=== PATIENT | female | born 1940 | race Caucasian/White ===

== ENCOUNTER → 2023-11-07 12:52 | Outpatient (REF) | payer MEDICARE, OTHER, SELFPAY | LOC: HWWDC 12:52 | PROVIDERS: ATTENDING PHYSICIAN Family Medicine | DX: Z12.31 Encounter for screening mammogram for malignant neoplasm of breast (principal) | CPT/HCPCS: 77063; 77067 ==

== ENCOUNTER → 2023-11-30 10:24 | Outpatient (REF) | payer MEDICARE, OTHER, SELFPAY ==
[2023-11-30 12:33] LABS: % Basophils 1.2 % (0-2); % Eosinophils 2.1 % (0-6); % Immature Granulocytes 0.3 % (0-0.5); % Lymphocytes 26.3 % (20.5-51.1); % Monocytes 7.9 % (1.7-9.3); % Neutrophils 62.2 % (42.2-75.2); Absolute Basophils 0.1 10^3/uL (0-0.2); Absolute Eosinophils 0.1 10^3/uL (0-0.7); Absolute Lymphocytes 1.5 10^3/uL (1.2-3.4); Absolute Monocytes 0.5 10^3/uL (0.1-0.6); Absolute Neutrophils 3.6 10^3/uL (1.4-6.5); Hematocrit 39.4 % (37.0-47.0); Hemoglobin 13.4 g/dL (12.0-16.0); Mean Corpuscular Hgb 30.8 pg (27.0-31.0); Mean Corpuscular Volume 90.6 fL (81.0-99.0); Mean Platelet Volume 10.9 fL (7.4-10.4); Nucleated Red Blood Cells % 0 %; Platelet Count 248 10^3/uL (130-400); Red Blood Cell Count 4.35 10^6/uL (4.20-5.40); Red Cell Dist. Width 13.5 % (11.5-14.5); White Blood Cell Count 5.8 10^3/uL (4.8-10.8)
[2023-11-30 12:55] LABS: ALT (SGPT) 16 U/L (0-35); AST (SGOT) 29 U/L (14-36); Albumin 4.4 g/dl (3.5-5.0); Alkaline Phosphatase 52 U/L (38-126); Blood Urea Nitrogen 14 mg/dl (7-17); Calcium 9.9 mg/dl (8.4-10.2); Carbon Dioxide 28 mmol/L (22-30); Chloride 104 mmol/L (98-107); Glucose 93 mg/dl (70-99); HDL Cholesterol 69 mg/dl; LDL Cholesterol, Calculated 185 mg/dl; Potassium 4.8 mmol/L (3.5-5.1); Sodium 142 mmol/L (135-145); Total Bilirubin 0.6 mg/dl (0.2-1.3); Total Cholesterol 272 mg/dl (50-199); Total Protein 6.6 g/dl (6.3-8.2); Triglyceride 92 mg/dl (10-149); Very Low Density Lipoprotein 18 mg/dl (0-30); eGFR > 60.00
[2023-11-30 13:20] LABS: TSH Reflex To Free T4 1.48 uIU/ml (0.47-4.68)
== END ==
LOC: HWLAB 10:24
PROVIDERS: ATTENDING PHYSICIAN Family Medicine
DX: E78.00 Pure hypercholesterolemia, unspecified (principal); Z13.1 Encounter for screening for diabetes mellitus; Z13.29 Encounter for screening for other suspected endocrine disorder; R53.83 Other fatigue
CPT/HCPCS: 36415; 80053; 80061; 84443; 85025

== ENCOUNTER 2024-05-02 21:50 | Emergency (ER) | payer MEDICARE, OTHER, SELFPAY ==
[2024-05-02 21:54] VITALS: BP 160/88
--- NOTE | 2024-05-02 22:22 | ED.GENMED ---
History of Present Illness
<Linda Villavicencio PA-C - Last Filed: 05/03/24 00:17>
General
Chief Complaint: Skin Surface Trauma
Source: patient
Exam Limitations: none
Time Seen by Provider: 05/02/24 22:16
Nursing documentation reviewed up to this point in time: agreed with
History of Present Illness
History of Present Illness:
Patient is an 83-year-old female presenting to the emergency department with laceration to right pointer finger. Patient states she was cutting cucumbers on a mandolin around 5 PM when she sliced her right index finger. She tried to get bleeding
to stop with direct pressure although it continues to ooze. Patient came to the emergency department for evaluation. Patient denies any numbness/tingling in right finger. No other injury sustained. Patient not on any blood thinners. Last
tetanus shot unknown.
Past History
<Linda Villavicencio PA-C - Last Filed: 05/03/24 00:17>
Past History
ED Past Medical History: None
ED Past Surgical History: None
Review of Systems
<Linda Villavicencio PA-C - Last Filed: 05/03/24 00:17>
Review of Systems
Allergies reviewed?: Yes
All Other Systems: ROS reviewed and negative except as documented in HPI and ROS
Phy Exam
<Linda Villavicencio PA-C - Last Filed: 05/03/24 00:17>
Physical Exam
Physical Exam:
Vitals: Patient's vital signs are stable. Afebrile
General: Patient is well appearing, no acute distress
Skin: Warm and dry, no rashes or lesions
Head: Normocephalic, atraumatic
Throat: Protecting airway
Neck: Normal ROM, no cervical spine tenderness
Cardiac: Regular rate
Pulm: No apparent respiratory distress
Abdomen: Nondistended
Extremities: Superficial avulsion to tip of right index finger at lateral aspect. Slow ooze of blood, no pulsatile bleeding. Full range of motion in right index finger at PE, PIP, DIP joints against resistance. No tendon involvement. Sensation
intact. Cap refill within normal limits
Neuro: Grossly intact
Psychiatric: Normal affect.
Course
<Linda Villavicencio PA-C - Last Filed: 05/03/24 00:17>
Orders/Labs/Results
Orders:
Orders
05/02/24 22:23
Tetanus/Diphth/Acelpertussis [Adacel] 0.5 ml IM .ONCE ONE
Vital Signs
Initial and Last Documented VS:
Initial Vital Signs
Temp Pulse Resp BP Pulse Ox
98.1 F 83 16 160/88 98
05/02/24 21:54 05/02/24 21:54 05/02/24 21:54 05/02/24 21:54 05/02/24 21:54
Last Documented Vital Signs
Temp Pulse Resp BP Pulse Ox
98.1 F 71 16 154/74 99
05/02/24 21:54 05/02/24 23:02 05/02/24 23:02 05/02/24 23:02 05/02/24 23:02
<Rinku Nuñez DO - Last Filed: 05/02/24 22:52>
Orders/Labs/Results
Orders:
Orders
05/02/24 22:23
Tetanus/Diphth/Acelpertussis [Adacel] 0.5 ml IM .ONCE ONE
Vital Signs
Initial and Last Documented VS:
Initial Vital Signs
Temp Pulse Resp BP Pulse Ox
98.1 F 83 16 160/88 98
05/02/24 21:54 05/02/24 21:54 05/02/24 21:54 05/02/24 21:54 05/02/24 21:54
Last Documented Vital Signs
Temp Pulse Resp BP Pulse Ox
98.1 F 71 16 154/74 99
05/02/24 21:54 05/02/24 23:02 05/02/24 23:02 05/02/24 23:02 05/02/24 23:02
<Linda Villavicencio PA-C - Last Filed: 05/03/24 00:17>
MDM/Problems Addressed
Differential Diagnosis Includes:
Not limited to: Skin avulsion, laceration, etc.
MDM/Problems Addressed:
83-year-old female presenting with superficial avulsion injury to right index finger occurring a few hours prior to arrival. No numbness/tingling of right index finger. No other injury sustained. Unknown last tetanus shot. No anticoagulation.
Hypertensive, otherwise patient has stable vital signs. Physical exam as above. There is a relatively small superficial avulsion to lateral side of tip of right index finger with slow ooze of blood. No pulsatile bleeding. No tendon involvement.
Right index finger neurovascularly intact. Suture repair not necessary. Tdap updated. Wound thoroughly irrigated with normal saline. Will place Surgifoam, compression bandage and reassess.
Update: Surgery from/bandage placed approximate 10 minutes ago. Patient reassessed at bedside without any evidence of rebleeding. Feel patient stable for discharge home with wound care instructions. Advised to monitor closely for signs of
infection. All questions answered. Patient will follow with PCP as needed. Patient seen with attending physician.
Chronic conditions affecting care:
N/A
Acute Exacerbation and/or Progression of Chronic Illness:
N/A
<Linda Villavicencio PA-C - Last Filed: 05/03/24 00:17>
*Pulse Oximetry
Patient hypoxic: no
*EKG
Interpreted by ED Provider?: NA
*Grid Operator Interpretation
Rate: Grid Operator- N/A
*Critical Care Note
Total Time (30-74mins, 75-104mins- exclusive of procedures): Not Applicable
ED Attending Note
<Linda Villavicencio PA-C - Last Filed: 05/03/24 00:17>
-
Portions of this chart may have been created with voice recognition software.� Occasional wrong word or��sound alike� substitutions may have occurred due to the inherent limitations of voice recognition software.
<Rinku Nuñez DO - Last Filed: 05/02/24 22:52>
ED Attending Note
Patient seen and examined by attending physician: Yes
ED Attending Note:
Pleasant 83-year-old female with a superficial avulsion to her right index finger from a mandolin. Tetanus shot status unknown. No other injuries. No anticoagulation. Patient was seen in conjunction with the [facility]. I have reviewed and agree with
her history and treatment plan. Independent physical exam there is a 0.5 cm diameter avulsion to the lateral tip of her right index finger. Plan is Surgifoam and bandage. No suture repair necessary suture repair necessary.
Discharge Plan
Departure
Patient Disposition: Home (Routine Discharge)
Date of Disposition: 05/02/24
Time of Disposition: 22:48
Patient with high blood pressure during this ER visit?: Yes
Covid-19: Not Applicable
Discharge Problem:
Avulsion injury of right index finger
Instructions: Wound care - ED discharge instructions
Prescriptions:
No Action
No Current Medications
Referrals:
Andrew Mcclure Jr., DO [Family Provider] -
Activity Restrictions/Additional Instructions:
RETURN TO THE EMERGENCY DEPARTMENT WITH ANY BLEEDING THAT WILL NOT STOP AT HOME OR ANY SIGNS OF INFECTION INCLUDING FEVERS, CHILLS, SIGNIFICANT REDNESS/SWELLING AROUND WOUND, OR PURULENT DRAINAGE, RED STREAKING AWAY FROM WOUND, OR ANY OTHER CONCERNS
-Use your current bandage on for the next 24 to 48 hours. Then remove and wash wound gently with soap and water daily. Keep covered until skin heals. Monitor closely for signs of infection.
-Follow-up with primary care as needed for further evaluation/treatment
Monitor your symptoms closely and return to the emergency department with any acute worsening/new symptoms or any other concerns
Interventions
Interventions:
*Risk Screen - Suicide Last Done: 05/02/24 22:17
*General Assessment Last Done: 05/02/24 21:54
*Neglect/Abuse Screening Last Done: 05/02/24 21:54
ED- Fall Risk Assessment Last Done: 05/02/24 22:17
*ED COVID-19 Vaccine History Last Done: 05/02/24 21:54
*Nursing Disposition Last Done: 05/02/24 23:02
ED-Skin Assessment Last Done: 05/02/24 22:17
Discharge Date and Time
Discharge Date/Time: 05/02/24 23:09
Print Language: DIVEHI
[2024-05-02] MEDS: ADACEL 0.5 ML IM (22:30)
[2024-05-02 23:02] VITALS: BP 154/74
== END 2024-05-02 23:09 | disposition home or self-care (01) ==
LOC: EMR 21:50
PROVIDERS: EMERGENCY PHYSICIAN Student in an Organized Health Care Education/Training Program; FAMILY PHYSICIAN Family Medicine
DX: S61.210A Laceration without foreign body of right index finger without damage to nail, initial encounter (principal); W27.4XXA Contact with kitchen utensil, initial encounter; Z23 Encounter for immunization; I10 Essential (primary) hypertension
CPT/HCPCS: 99282; 90471; 90715

== ENCOUNTER → 2024-06-21 09:42 | Outpatient (REF) | payer MEDICARE, OTHER, SELFPAY ==
[2024-06-21 12:45] LABS: % Eosinophils 3.8 % (0-6); % Immature Granulocytes 0.2 % (0-0.5); % Lymphocytes 26.5 % (20.5-51.1); % Monocytes 7.1 % (1.7-9.3); % Neutrophils 61.4 % (42.2-75.2); Absolute Basophils 0.1 10^3/uL (0-0.2); Absolute Eosinophils 0.2 10^3/uL (0-0.7); Absolute Lymphocytes 1.5 10^3/uL (1.2-3.4); Absolute Monocytes 0.4 10^3/uL (0.1-0.6); Absolute Neutrophils 3.5 10^3/uL (1.4-6.5); Hematocrit 38.3 % (37.0-47.0); Hemoglobin 13.3 g/dL (12.0-16.0); Mean Corp Hgb Conc. 34.7 g/dL (33.0-37.0); Mean Corpuscular Hgb 32.2 pg (27.0-31.0); Mean Corpuscular Volume 92.7 fL (81.0-99.0); Nucleated Red Blood Cells % 0 %; Platelet Count 223 10^3/uL (130-400); Red Blood Cell Count 4.13 10^6/uL (4.20-5.40); Red Cell Dist. Width 13.3 % (11.5-14.5); White Blood Cell Count 5.8 10^3/uL (4.8-10.8)
[2024-06-21 13:16] LABS: ALT (SGPT) 18 U/L (0-35); AST (SGOT) 23 U/L (14-36); Albumin 4.2 g/dl (3.5-5.0); Alkaline Phosphatase 51 U/L (38-126); Blood Urea Nitrogen 14 mg/dl (7-17); Calcium 9.6 mg/dl (8.4-10.2); Carbon Dioxide 26 mmol/L (22-30); Chloride 104 mmol/L (98-107); Glucose 97 mg/dl (70-99); HDL Cholesterol 66 mg/dl; LDL Cholesterol, Calculated 155 mg/dl; Potassium 4.7 mmol/L (3.5-5.1); Sodium 138 mmol/L (135-145); Total Bilirubin 0.6 mg/dl (0.2-1.3); Total Cholesterol 242 mg/dl (50-199); Total Protein 6.3 g/dl (6.3-8.2); Triglyceride 105 mg/dl (10-149); Very Low Density Lipoprotein 21 mg/dl (0-30); eGFR > 60.00
== END ==
LOC: HWLAB 09:42
PROVIDERS: ATTENDING PHYSICIAN Family Medicine
DX: E78.00 Pure hypercholesterolemia, unspecified (principal); Z13.1 Encounter for screening for diabetes mellitus; R53.83 Other fatigue
CPT/HCPCS: 36415; 80053; 80061; 85025

== ENCOUNTER → 2024-11-07 12:43 | Outpatient (REF) | payer MEDICARE, OTHER, SELFPAY | LOC: HWWDC 12:43 | PROVIDERS: ATTENDING PHYSICIAN Family Medicine | DX: Z12.31 Encounter for screening mammogram for malignant neoplasm of breast (principal) | CPT/HCPCS: 77063; 77067 ==

== ENCOUNTER → 2025-01-01 14:01 | Outpatient (REF) | payer MEDICARE, OTHER, SELFPAY | LOC: HWRAD 14:01 | PROVIDERS: ATTENDING PHYSICIAN Family Medicine | DX: Z13.820 Encounter for screening for osteoporosis (principal); Z78.0 Asymptomatic menopausal state | CPT/HCPCS: 77080 ==